=== PATIENT | male | born 1990 | race Caucasian/White ===

== ENCOUNTER 2016-07-30 16:33 | Emergency (ER) | payer BC, OTHER ==
[2016-07-30 18:24] VITALS: BP 121/76
== END 2016-07-30 18:24 | disposition home or self-care (01) ==
LOC: ED 16:33
DX: S61.012A Laceration without foreign body of left thumb without damage to nail, initial encounter (principal); X58.XXXA Exposure to other specified factors, initial encounter; Y93.9 Activity, unspecified; Y92.89 Other specified places as the place of occurrence of the external cause; Y99.9 Unspecified external cause status
CPT/HCPCS: 99281

== ENCOUNTER 2017-09-13 22:59 | Emergency (ER) | payer SELFPAY ==
--- NOTE | 2017-09-14 00:40 | ED ---
Respiratory - HPI Summary HPI Summary: Complains of subjective fever, body aches rated 3/10, clear nasal discharge starting today. Denies ear pain, headache, recent tick bite, Rash, cough, sore throat, CP, SOB, N/V/D, abdominal pain, change in urinary BM. Patient took ibuprofen 3 hours ago. History of allergies, usually takes Claritin but has not taken it for 2 days. Other Medical history is none. Denies contact exposure. - History of Current Complaint Chief Complaint: EDFluSymptoms Stated Complaint: FEVER Time Seen by Provider: 09/14/17 00:24 Hx Obtained From: Patient Pain Intensity: 0 - Allergy/Home Medications Allergies/Adverse Reactions: Allergies Allergy/AdvReac Type Severity Reaction Status Date / Time bee venom protein (honey bee) Allergy Anaphylatic Verified 09/14/17 00:25 Shock Home Medications: Home Medications Loratadine [Claritin 10 MG CAP] 10 mg PO DAILY 09/14/17 [History Confirmed 09/14] PMH/Surg Hx/FS Hx/Imm Hx - Immunization History Date of Tetanus Vaccine: utd Date of Influenza Vaccine: unk Infectious Disease History: No Infectious Disease History: Denies: Traveled Outside the [place] in Last 30 Days - Social History Alcohol Use: None Substance Use Type: Reports: None Smoking Status (MU): Never Smoked Tobacco Review of Systems Positive: Fever Eyes: Negative Positive: Nasal Discharge Cardiovascular: Negative Respiratory: Negative Gastrointestinal: Negative Genitourinary: Negative Positive: Myalgia Skin: Negative Neurological: Negative Psychological: Normal All Other Systems Reviewed And Are Negative: Yes Physical Exam Triage Information Reviewed: Yes Vital Signs On Initial Exam: Initial Vitals Temp Pulse Resp BP Pulse Ox 97.6 F 116 16 125/95 99 09/13/17 23:02 09/13/17 23:02 09/13/17 23:02 09/13/17 23:02 09/13/17 23:02 Vital Signs Reviewed: Yes Appearance: Positive: Well-Appearing Skin: Positive: Warm Head/Face: Positive: Normal Head/Face Inspection Eyes: Positive: Normal ENT: Positive: Pharyngeal erythema, Tonsillar swelling Neck: Positive: Supple Respiratory/Lung Sounds: Positive: Clear to Auscultation Cardiovascular: Positive: Normal Abdomen Description: Positive: Nontender Musculoskeletal: Positive: Normal Neurological: Positive: Normal Psychiatric: Positive: Normal AVPU Assessment: Alert - Carter Coma Scale Best Eye Response: 4 - Spontaneous Best Motor Response: 6 - Obeys Commands Best Verbal Response: 5 - Oriented Coma Scale Total: 15 Diagnostics - Vital Signs Vital Signs Temp Pulse Resp BP Pulse Ox 09/13/17 23:02 97.6 F 116 16 125/95 99 - Laboratory Lab Statement: Any lab studies that have been ordered have been reviewed, and results considered in the medical decision making process. Disposition - Course Course Of Treatment: Complains of subjective fever, body aches rated 3/10, clear nasal discharge starting today. Denies ear pain, headache, recent tick bite, Rash, cough, sore throat, CP, SOB, N/V/D, abdominal pain, change in urinary BM. Patient took ibuprofen 3 hours ago. History of allergies, usually takes Claritin but has not taken it for 2 days. Other Medical history is none. Denies contact exposure. Vital signs normal and stable. Labs negative for strep and flu. Likely viral syndrome. Tylenol and ibuprofen for fever control. Fluids to maintain hydration - Diagnoses Provider Diagnoses: Viral syndrome Discharge - Sign-Out/Discharge Documenting (check all that apply): Discharge/Admit/Transfer - Discharge Plan Condition: Stable Disposition: HOME Patient Education Materials: Viral Syndrome (ED) Referrals: No Primary Care Phys,NOPCP [Primary Care Provider] - [facility] [Outside] Additional Instructions: Take ibuprofen or Tylenol for fever control. Drink plenty of fluids to maintain hydration. Follow-up with primary care. Return to the ED for any new or worsening symptoms - Billing Disposition and Condition Condition: STABLE Disposition: HOME
[2017-09-14 02:48] VITALS: BP 125/82
== END 2017-09-14 02:30 | disposition home or self-care (01) ==
LOC: ED 22:59
DX: B34.9 Viral infection, unspecified (principal); Z91.030 Bee allergy status
CPT/HCPCS: 87502; 87651; 99282